=== PATIENT | female | born 1995 | race Caucasian/White ===

== ENCOUNTER 2019-09-19 07:47 | Emergency (ER) | payer BC ==
[~2019-09-19] VITALS: Ht 152.4 cm; Wt 71.7 kg
[2019-09-19 07:50] VITALS: Ht 152.4 cm; Wt 71.7 kg
[2019-09-19 08:46] LABS: BASOPHIL % 0.3 % (0-2); PLATELET COUNT 285 x10^3mcL (130-400); RED CELL DISTRIBUTION WIDTH 13.5 % (11.5-14.5)
[2019-09-19 09:11] LABS: UA SPECIFIC GRAVITY 1.025 (1.005-1.035); microscopic required? YES; urine erythrocyte 3+ (NEGATIVE)
[2019-09-19 09:15] LABS: CALCIUM 8.9 mg/dL (8.5-10.1); CARBON DIOXIDE 24.5 mmol/L (21-32); CHLORIDE SERUM 102 mmol/L (98-107); CREATININE SERUM 0.9 mg/dL (0.6-1.0); GFR1 > 60 mL/min; GLUCOSE SERUM 120 mg/dL (74-106); POTASSIUM SERUM 3.6 mmol/L (3.5-5.1); SODIUM SERUM 138 mmol/L (136-145)
[2019-09-19 09:28] LABS: ALBUMIN 4.1 g/dL (3.4-5.0); ALKALINE PHOSPHATASE 63 U/L (46-116); ALT/SGPT 28 U/L (14-59); AST/SGOT 13 U/L (15-37); BILIRUBIN TOTAL 0.24 mg/dL (0.20-1.00); C REACTIVE PROTEIN 6.6 mg/dL (<=0.9)
[2019-09-19 09:29] LABS: TOTAL PROTEIN, SERUM 8.4 g/dL (6.4-8.2)
[2019-09-19 09:31] LABS: T3 TOTAL 0.9 ng/mL
[2019-09-19 09:32] LABS: CREATINE KINASE 52 U/L (26-192); FREE T4 0.98 ng/dL (0.76-1.46)
[2019-09-19 09:57] LABS: CK-MB < 0.5 ng/mL (0-3.6)
[2019-09-19 10:13] LABS: ERYTHROCYTE SED RATE 22 mm/hr (0-20)
[2019-09-19 12:14] VITALS: BP 98/68
== END 2019-09-19 12:14 | disposition home or self-care (01) ==
LOC: ED 07:47
PROVIDERS: Specialist
DX: R10.30 Lower abdominal pain, unspecified (principal); J45.909 Unspecified asthma, uncomplicated; R19.7 Diarrhea, unspecified
CPT/HCPCS: 84439; 87046; 87046-59; J0744; J1885; J2405; J3010; J7030